=== PATIENT | female | born 1985 | race Caucasian/White ===

== ENCOUNTER 2016-09-27 06:04 | Inpatient (IN) | payer BC ==
[~2016-09-27] VITALS: Ht 167.6 cm; Wt 102.7 kg
[~2016-09-27 06:04] MED LIST: MTR600X PO; PRENTAB26 PO
[2016-09-27] MEDS ORDERED: LACTATED RINGER'S 1000ML 1,000 ML IV PRN (06:57)
[2016-09-27] MEDS ORDERED: LACTATED RINGER'S 1000ML 1,000 ML IV SCH (06:57)
[2016-09-27] MEDS ORDERED: ZNT/150 PO (06:58)
[2016-09-27] MEDS ORDERED: SERT50TA PO (06:58)
[2016-09-27 06:59] VITALS: Ht 167.6 cm; Wt 102.7 kg
[2016-09-27] MEDS ORDERED: LACTATED RINGER'S 1000ML 500 ML IV PRN ×2 (07:07→13:36)
[2016-09-27] MEDS ORDERED: OXYTOCIN 30 UNITS/500ML NSS IV PRN ×2 (07:15→18:15)
[2016-09-27 07:29] LABS: HEMATOCRIT 32.9 % (37-47); MEAN CELL VOLUME 89.4 fL (80-100); MEAN CORPUSCULAR HEMOGLOBIN 29.3 pg (25-34); MEAN CORPUSCULAR HGB CONC 32.8 g/dl (32-36); MEAN PLATELET VOLUME 9.7 fL (7.4-10.4); PLATELET COUNT 293 K/uL (130-400); RED BLOOD COUNT 3.68 M/uL (4.2-5.4); WHITE BLOOD COUNT 8.92 K/uL (4.8-10.8)
[2016-09-27] MEDS: RANITIDINE HCL 150 MG TAB PO SCH ×3 (07:55→23:07)
[2016-09-27] MEDS ORDERED: BUPIVACAINE 0.25% 30 ML VIAL ONE (11:27)
[2016-09-27] MEDS ORDERED: FENTANYL 2MCG/ML ROPIV 1.25MG/ML 100ML BAG EPI ONE (11:28)
[2016-09-27] MEDS ORDERED: EpHEDrine SULFATE INJ 50 MG/ML AMP ONE (11:28)
[2016-09-27] MEDS ORDERED: FENTANYL CITRATE INJ 50 MCG/1 ML 2 ML VIAL ONE (11:28)
[2016-09-27] MEDS ORDERED: NALOXONE HCL INJ 1 MG in SODIUM CHLORIDE 0.9% 1000ML 1,000 ML IV PRN (13:36)
[2016-09-27] MEDS ORDERED: FENTANYL 2MCG/ML ROPIV 1.25MG/ML 100ML BAG EPI PRN (13:45)
[2016-09-27] MEDS ORDERED: NALBUPHINE HCL INJ 10 MG/ML AMP IV PRN (13:45)
[2016-09-27] MEDS ORDERED: NALOXONE HCL INJ 0.4 MG/1 ML VIAL/CARP IV PRN (13:45)
[2016-09-27] MEDS ORDERED: DiphenhydrAMINE HCL 50 MG/ML VIAL IV PRN (13:45)
[2016-09-27] MEDS ORDERED: ONDANSETRON INJ 2 MG/ML 2 ML VIAL IV PRN (13:45)
[2016-09-27] MEDS ORDERED: EpHEDrine SULFATE INJ 50 MG/ML AMP IV PRN (13:45)
[2016-09-27] MEDS: CALCIUM CARBONATE 500 MG CHEWABLE PO PRN ×2 (14:45→17:09)
[2016-09-27] MEDS ORDERED: ACETAMINOPHEN 500 MG TAB PO ONE (15:00)
[2016-09-27] MEDS ORDERED: LANOLIN OINT EXT PRN ×2 (18:15)
[2016-09-27] MEDS ORDERED: SUPERCREAM 0.870 % 15GM JAR EXT PRN (18:15)
[2016-09-27] MEDS ORDERED: OXYCODONE/ACETAMINOPHEN 5-325 TAB PO PRN (18:15)
[2016-09-27] MEDS ORDERED: BENZOCAINE 20% AER SPR 82.5 GM CAN EXT PRN (18:15)
[2016-09-27] MEDS ORDERED: HYDROCORTISONE ACETATE 25 MG SUPP PR PRN (18:15)
[2016-09-27] MEDS ORDERED: ACETAMINOPHEN/CODEINE 300/30MG TAB PO PRN (18:15)
--- NOTE | 2016-09-27 18:51 | Progress Note ---
Progress Note Date of Service Sep 27, 2016. Progress Note Delivery Note Patient delivered a live infant male in occiput anterior presentation. There was loose nuchal cord was easily reduced. was delivered and placed on mother's abdomen. Delayed cord clamp was performed after 1 minute. score was 9/9/. Cord blood was obtained and baby's wt is pending . Placenta was spontaneously delivered . It appeared grossly normal . Three-vessel cord is identified. Inspection of the perineum showed second-degree midline laceration. Laceration is repaired with 2-0 Vicryl in layers. Rectal exam post repair shows good sphincter tone. No sutures are palpated in the rectum. all instruments was removed from the vagina and accounted for 2 including sponges and needles. baby and mother are stable and in recovery.estimated blood loss was about 400 mL.
[2016-09-27] MEDS: IBUPROFEN 600 MG TAB PO PRN ×2 (19:50→23:56)
[2016-09-27 21:15] VITALS: BP 124/81; PULSE 102; TEMP 37
[2016-09-27] MEDS: ACETAMINOPHEN 325 MG TAB PO PRN (21:15)
[2016-09-27] MEDS: DOCUSATE SODIUM 100 MG CAP PO SCH (21:33)
--- NOTE | 2016-09-27 22:18 | Anesthesia Procedure Note ---
Anesthesia Epidural Removal Nt Date & Time Sep 27, 2016 at 22:18 Vital Signs Pain Intensity: 3.0 Vital Signs Past 12 Hours Date Time Temp Pulse Resp B/P (MAP) Pulse Ox O2 Delivery O2 Flow Rate FiO2 09/27/16 21:15 37.0 102 18 124/81 (95) Room Air 09/27/16 21:15 Room Air Notes Mental Status: alert / awake / arousable, participated in evaluation Nausea / Vomiting: adequately controlled Pain: adequately controlled Airway Patency, RR, SpO2: stable & adequate BP & HR: stable & adequate Hydration State: stable & adequate Neuraxial Anesthesia: was administered Anesthetic Complications: no major complications apparent, pt satisfied with anesthetic care Epidural: removed without complications, with tip intact
[2016-09-28] VITALS (7 sets, daily range): BP systolic 109–126; BP diastolic 61–75; PULSE 74–85; TEMP 36.4–36.8; O2SAT 96–98
[2016-09-28] MEDS: ACETAMINOPHEN/CODEINE 300/30MG TAB PO PRN ×2 (02:16→16:00)
[2016-09-28] MEDS: IBUPROFEN 600 MG TAB PO PRN ×5 (04:12→23:54)
--- NOTE | 2016-09-28 07:52 | OB/GYN Progress Note ---
[employer] Progress Note Date of Service Sep 28, 2016. Subjective conversation w/ patient Ambulation: ambulating normally Voiding: no voiding problems Passing Gas: Yes Diet Tolerance: Regular Diet Lochia: Moderate Review of Systems Constitutional: No fever, No chills, No sweats, No weight loss, No weakness, No fatigue, No problem reported Respiratory: No cough, No sputum, No wheezing, No shortness of breath, No dyspnea on exertion, No dyspnea at rest, No hemoptysis, No problem reported Cardiac: No chest pain, No orthopnea, No PND, No edema, No claudication, No palpitations, No problem reported Breast: No see HPI, No breast lump, No change in shape, No nipple discharge, No breast pain, No problem reported Abdomen: No pain, No nausea, No vomiting, No diarrhea, No constipation, No GI bleeding, No problem reported Female : No see HPI, No dysuria, No urinary frequency, No hematuria, No incontinence, No abnormal vaginal bleeding, No vaginal discharge, No problem reported Objective Vital Signs Date Time Temp Pulse Resp B/P (MAP) Pulse Ox O2 Delivery O2 Flow Rate FiO2 09/28/16 04:00 36.6 82 20 125/61 (82) 98 Room Air 09/28/16 01:06 96 Room Air 09/28/16 01:03 36.7 82 20 126/72 (90) 96 Room Air 09/27/16 21:15 37.0 102 18 124/81 (95) Room Air 09/27/16 21:15 Room Air Physical Exam General Appearance: WELL-APPEARING Respiratory/Chest: chest non-tender, lungs clear Cardiovascular: regular rate, rhythm Abdomen: normal bowel sounds Fundus: Firm Extremities: normal range of motion Laboratory Results Last 24 Hours Test 09/28/16 07:47 Assessment and Plan Post- Day Number: 1 Continue Routine Care: VD day #1 Pt doing well anticipate disch tomorrow
[2016-09-28 08:12] LABS: HEMATOCRIT 31.2 % (37-47)
[2016-09-28] MEDS: RANITIDINE HCL 150 MG TAB PO SCH ×2 (08:24→19:28)
[2016-09-28] MEDS: DOCUSATE SODIUM 100 MG CAP PO SCH ×2 (08:24→19:28)
[2016-09-28] MEDS: SERTRALINE HCL 100 MG TAB PO SCH (09:01)
[2016-09-28] MEDS ORDERED: BISACODYL 5 MG TABEC PO SCH (20:00)
[2016-09-29] MEDS: ACETAMINOPHEN 325 MG TAB PO PRN (02:57)
[2016-09-29] MEDS ORDERED: BISACODYL 10 MG SUPP PR PRN (07:00)
[2016-09-29] MEDS: IBUPROFEN 600 MG TAB PO PRN ×2 (07:17→13:11)
[2016-09-29] MEDS: DOCUSATE SODIUM 100 MG CAP PO SCH (08:15)
[2016-09-29] MEDS: RANITIDINE HCL 150 MG TAB PO SCH (08:15)
[2016-09-29] MEDS: SERTRALINE HCL 100 MG TAB PO SCH (08:15)
[2016-09-29 08:33] VITALS: BP 122/83; PULSE 84; TEMP 36.6; O2SAT 98
[2016-09-29] MEDS ORDERED: MEASLES, MUMPS & RUBELLA VIRUS VIAL SQ. ONE (09:00)
[2016-09-29] MEDS ORDERED: MTR600X PO (09:01)
--- NOTE | 2016-09-29 09:01 | OB/GYN Progress Note ---
[employer] Progress Note Date of Service Sep 29, 2016. Subjective conversation w/ patient, physical exam Ambulation: ambulating normally Voiding: no voiding problems Passing Gas: Yes Diet Tolerance: Regular Diet Lochia: Small Feeding Type: Breast Feeding Pain: 2/10 Notes: Doing well, no concerns. Pain well controlled. Lochia decreasing. Ambulating without difficulty. Tolerating regular diet. Objective Vital Signs Date Time Temp Pulse Resp B/P (MAP) Pulse Ox O2 Delivery O2 Flow Rate FiO2 09/29/16 08:33 98 Room Air 09/29/16 08:33 36.6 84 16 122/83 (96) 98 Room Air 09/28/16 23:45 96 Room Air 09/28/16 23:45 36.6 79 16 119/75 (90) 96 Room Air 09/28/16 15:50 Room Air 09/28/16 15:50 36.8 74 18 109/75 (86) Room Air 09/28/16 11:45 36.4 85 20 110/75 (87) Room Air Physical Exam General Appearance: WELL-APPEARING Respiratory/Chest: chest non-tender, lungs clear Cardiovascular: regular rate, rhythm Abdomen: normal bowel sounds, soft Fundus: Firm Extremities: normal range of motion, non-tender, no calf tenderness Laboratory Results Last 24 Hours Test 09/29/16 08:53 Assessment and Plan Post- Day Number: 2 Continue Routine Care: -D/C home today -F/U in 6 weeks.
[2016-09-29 09:02] LABS: HEMATOCRIT 35.4 % (37-47); MEAN CELL VOLUME 89.8 fL (80-100); MEAN CORPUSCULAR HEMOGLOBIN 29.9 pg (25-34); MEAN CORPUSCULAR HGB CONC 33.3 g/dl (32-36); MEAN PLATELET VOLUME 9.5 fL (7.4-10.4); PLATELET COUNT 261 K/uL (130-400); RED BLOOD COUNT 3.94 M/uL (4.2-5.4); WHITE BLOOD COUNT 11.89 K/uL (4.8-10.8)
--- NOTE | 2016-09-29 09:03 | Discharge Instructions ---
Discharge Instructions Date of Service Sep 29, 2016. Admission Reason for Admission: Amniotic Fluid Leaking, Term Discharge Discharge Diagnosis / Problem: Vaginal Delivery Discharge Goals Goal(s): Routine recovery after delivery Medications Continue Dispensed Medications: supercream, dermaplast, tucks, lansinoh Activity Recommendations Activity Limitations: per Instructions/Follow-up section . Instructions / Follow-Up Instructions / Follow-Up ACTIVITY RECOMMENDATIONS: * Gradual return to full activity over the next 2-3 weeks. * No lifting - nothing heavier than baby over the next 2-3 weeks. * Do not engage in vigorous exercise, sexual activity or sports until cleared by your physician. * Do not drive or operate any motorized equipment until cleared by your physician. * You may shower/bathe daily. BREAST CARE: If you are not breast feeding: * Wear a supportive bra 24 hours a day for one to two weeks. * Avoid stimulating your breasts and nipples as much as possible during the first few weeks after delivery. * When taking a shower, have the warm water hit your back, not breasts. * When your breasts feel full, apply ice packs. Usually three to four times a day helps ease the discomfort. * Take a mild pain medication (Tylenol/Motrin) when you are uncomfortable. If breast feeding: * Use breast milk to lubricate nipples. Lansinoh cream may be used for sore nipples. You do not need to remove cream prior to breast feeding. If using a different brand of cream, check the label for directions regarding removal of cream prior to nursing. * Wear a supportive bra. * If having problems with breasts or breast feeding, call a dietitian consultant or your health care provider. EPISIOTOMY CARE: After delivery, if you have an episiotomy (stitches), the following steps will ease discomfort and aid healing. * For the first 24 hours after delivery, place ice packs next to your episiotomy to help reduce swelling. * After the first 24 hour-period, sitz baths, either portable or in the tub, are suggested. A shower with a shower arm sprayed over the episiotomy may be comforting. * Sridevi care should be done after each voiding and bowel movement. Squirt warm water from a plastic bottle over the perineum (region of the body between the anus and urinary opening) and pat dry. * Use Dermoplast to ease discomfort. Shake container. [place] directly over the episiotomy. * Place a Tucks on a clean sanitary pad next to your episiotomy. OVER THE COUNTER MEDICATION: * For discomfort or pain, you may use Acetaminophen (Tylenol), Ibuprofen (Advil ), or Naproxen (Aleve) following the package directions. * For constipation you may use Colace following the package directions. SPECIAL CARE INSTRUCTIONS: When you are discharged from the hospital, it is important for you to follow the instructions listed below: * During the first week at home, you should be able to care for yourself and your baby. In addition, the usual light household activities are encouraged. * Limit your activities to the way you feel. Do not try to clean the house or move furniture. Be sensible. * If you actively engage in sports and have done so up until the time of your delivery, you may resume these activities as soon as you feel able. This may take up to one month or even longer. Use good judgment. * Continue to take your vitamins for at least six weeks after the of your baby. * Your diet need not be limited unless you were on a special diet before your delivery. Breast-feeding mothers need around 2500 calories per day and at least 64-80 ounces of fluid per day (8 to 10 glasses). * You should eat foods from the four major food groups. Crash diets or fad diets are to be avoided. Eating lean meats, fresh fruits and vegetables, low-fat dairy products, high fiber foods and a regular exercise program, will help you get back to your pre- weight without putting your health at risk. * Constipation is sometimes a problem after delivery. Take a mild laxative as needed. If breast feeding, Milk of Magnesia is acceptable to use. You may use a suppository or Fleets enema if no episiotomy. * A daily shower or tub bath is suggested. Be sure to thoroughly and gently dry the perineum. * A bloody vaginal discharge will usually continue until around four weeks post . A small amount of bleeding may continue for as long as six weeks. Vaginal discharge changes from the bright red bleeding after delivery to pink then brownish and finally yellowish-pink before becoming white and disappearing. * Bleeding may increase with activity. Your first period may come in 4-8 weeks. If you are breast feeding, your period may be delayed even longer. * Sanderson (sex) can begin whenever both you and your partner feel comfortable and do not have any form of genital infection. It is recommended that you wait until after your return appointment and discuss with your physician. If you have questions, please talk to your health care practitioner. A condom should be used to prevent infection and . * Foreplay, gentle intercourse and lubrication is very important the first several times to prevent pain. A water-based lubricant such as K-Y jelly or Astroglide may be used. * Tampons may be used six weeks after delivery. * Douching should be avoided for 6 weeks after delivery. * If you have RH negative blood and your baby is RH positive, you will receive RHOGAM by injection prior to discharge. The nurse will give you a card to keep with you that has the date and place that you received RHOGAM after delivery. * During your care, you had a Rubella screen done to check for the presence of rubella antibodies in your blood. If your test was negative, you will receive a Rubella vaccine prior to discharge. This vaccine may cause a fever, soreness at the injection site and flu-like symptoms. If these symptoms persist, notify your health care practitioner. is not advised for three months after a Rubella vaccine. There is a higher chance of having a baby with defects if conceived within three months of getting the vaccine. * If you were discharged 24 hours from delivery or before 48 hours: Visiting nurses will come to your home 48 hours after discharge to assess you and your baby. The visiting nurse will meet with you while you are in the hospital to arrange a time and get directions to your home. * Verbalizes understanding of car seat law as reviewed with patient nursing. * Car Seat hand-out given and reviewed with patient by nursing. * Shaken baby information reviewed with patient by nursing. Call you doctor if: * Heavy bleeding (saturating several pads an hour) or passing clots the size of your fist. * A fever >101 degrees F (38.3 degrees C) on two occasions four hours apart and/or chills. * Unusual pain in the pelvic or vaginal areas. * "Baby Blues" lasting longer than two weeks. If you have any questions or concerns, call your health care practitioner at . FOLLOW-UP VISIT: * Please call the office at to schedule a 6 week examination. It is important you keep this appointment. * It is important for you to make arrangements for either yearly or twice yearly check-ups thereafter. Current Hospital Diet Patient's current hospital diet: Regular OB Diet Discharge Diet Recommended Diet: Regular OB Diet Pending Studies Studies pending at discharge: no Medical Emergencies . Who to Call and When: Medical Emergencies: If at any time you feel your situation is an emergency, please call 911 immediately. . Non-Emergent Contact Non-Emergency issues call your: Primary Care Provider, Nurses' Aide . . "Provider Documentation" section prepared by Ahsan Mccormick. . VTE Core Measure Inpt VTE Proph given/why not?: Treatment not indicated
[2016-09-29 13:30] VITALS: BP_DIAS 83; PULSE 84; TEMP 36.6
== END 2016-09-29 13:45 | disposition home or self-care (01) | DRG 775 ==
LOC: C.OPB 06:04 → C.LD 06:05 → C.OPB 07:07 → C.LD 09:45 → C.OBG 20:24
PROVIDERS: ADMIT Obstetrics & Gynecology; ATTEND Obstetrics & Gynecology
PROC: 10E0XZZ Delivery of Products of Conception, External Approach (ICD-10-PCS; principal; 2016-09-27)
PROC: 0KQM0ZZ Repair Perineum Muscle, Open Approach (ICD-10-PCS; principal; 2016-09-27)
DX: O69.81X0 Labor and delivery complicated by cord around neck, without compression, not applicable or unspecified (principal); O70.1 Second degree perineal laceration during delivery; Z3A.40 40 weeks gestation of pregnancy; Z37.0 Single live birth

== ENCOUNTER 2017-02-25 08:06 | Emergency (ER) | payer BC ==
[~2017-02-25] VITALS: Ht 165.1 cm; Wt 90.3 kg
[~2017-02-25 08:06] MED LIST changes: +SERT50TA PO; +ZNT/150 PO
[2017-02-25 08:08] VITALS: Ht 165.1 cm; Wt 90.3 kg
[2017-02-25] MEDS ORDERED: MoRPHine SULFATE 4 MG/ML 1 ML CARP\\VIAL IV STA (08:20)
[2017-02-25] MEDS ORDERED: KETOROLAC TROMETHAMINE 30 MG/ML VIAL IV STA (08:20)
[2017-02-25] MEDS ORDERED: GI COCKTAIL PO STA (08:20)
[2017-02-25] MEDS ORDERED: ONDANSETRON INJ 2 MG/ML 2 ML VIAL IV STA (08:20)
--- NOTE | 2017-02-25 08:28 | EMERGENCY ROOM VISIT NOTE ---
History Report prepared by Kendraibradha: Sierra Manjarrez Under the Supervision of: Dr. Zach Salter M.D. First contact with patient: 08:10 Chief Complaint: CHEST PAIN Stated Complaint: CHEST PAIN Nursing Triage Summary: patient states she had nausea and vomiting throughout the night. patient woke up around 0630 c/o midsternal chest pain that radiates to midback. History of Present Illness The patient is a 31 year old white female with no significant past medical history who presents to the ED with a cc of worsening chest pain beginning around three hours prior to arrival. Positive nausea, vomiting, abdominal pain. Negative fever, cough chills. She currently rates her discomfort as an 8/10 in severity. The patient reports increased pain with deep breathing. She denies taking anything for her pain. The patient denies any recent antibiotic use or sick contacts. She denies any recent travel or drinking from streams or wells. The patient describes her pain as a dull-achy pain. She denies any history of PEs or DVTs. The patient denies any recent fall or trauma. Source of History: patient Onset: three hours prior to arrival Position: chest Symptom Intensity: 8/10 Quality: ache, dull Timing: other (8/10) Modifying Factors (Worsening): breathing (deep) Associated Symptoms: + nausea, + vomiting, + abdominal pain, No fevers, No chills, No cough Review of Systems See HPI for pertinent positives and negatives. A total of ten systems were reviewed and were otherwise negative. Past Medical & Surgical Medical Problems: (1) Amniotic fluid leaking (2) possible ruptured membranes (3) term (4) Uterine contractions at greater than 20 weeks of gestation Family History No pertinent family history stated. Social History Smoking Status: Never Smoker Marital Status: Housing Status: lives with family Occupation Status: employed Current/Historical Medications Scheduled Norelgestromin-Ethinyl Estradi (Xulane 150-35 Mcg/24Hr), 1 PATCH TOP MONTHLY Allergies Coded Allergies: Sulfa Drugs (Unverified Allergy, Unknown, HIVES, 09/27/16) Physical Exam Vital Signs Date Time Temp Pulse Resp B/P (MAP) Pulse Ox O2 Delivery O2 Flow Rate FiO2 02/25/17 10:55 36.8 56 19 144/91 98 Room Air 02/25/17 09:41 72 19 121/82 94 Room Air 02/25/17 09:16 75 18 121/87 97 Room Air 02/25/17 08:48 88 20 132/92 97 Room Air 02/25/17 08:47 98 Room Air 02/25/17 08:20 104 02/25/17 08:18 95 Room Air 02/25/17 08:08 36.8 96 18 138/91 99 Room Air Physical Exam GENERAL: Awake, alert, tearful, uncomfortable-appearing, HENT: Normocephalic, atraumatic. EYES: Normal conjunctiva. Sclera non-icteric. NECK: Supple. No nuchal rigidity. FROM. RESPIRATORY: CTAB, no rhonchi, wheezing, crackles CARDIAC: RRR, no MRG ABDOMEN: Soft, mild epigastric pain, BS+ MSK: Reproducible mid-sternal tenderness to palpation without crepitus or ecchymosis, no LE edema NEURO: GCS 15, CN 2-12 intact, moves all 4s on command SKIN: No rash or jaundice noted. Medical Decision & Procedures ER Provider Diagnostic Interpretation: X-ray: Per my interpretation, radiologist review. CHEST ONE VIEW PORTABLE CLINICAL HISTORY: Chest pain. COMPARISON STUDY: No previous studies for comparison. FINDINGS: Lung volumes are normal. No pneumothorax or pleural effusion is present. There is no consolidation. Pulmonary vascularity is normal. Cardiomediastinal silhouette is normal. IMPRESSION: No acute cardiopulmonary findings. Electronically signed by: Ethan Palmer M.D. 02/25/2017 8:34 AM Dictated Date/Time: 02/25/2017 8:33 AM Laboratory Results 02/25/17 08:32 Red Blood Count 4.69, Mean Corpuscular Volume 89.6, Mean Corpuscular Hemoglobin 30.7, Mean Corpuscular Hemoglobin Concent 34.3, Mean Platelet Volume 10.9, Neutrophils (%) (Auto) 72.3, Lymphocytes (%) (Auto) 16.9, Monocytes (%) (Auto) 6.3, Eosinophils (%) (Auto) 4.1, Basophils (%) (Auto) 0.3, Neutrophils # (Auto) 4.91, Lymphocytes # (Auto) 1.15, Monocytes # (Auto) 0.43, Eosinophils # (Auto) 0.28, Basophils # (Auto) 0.02 02/25/17 08:32 Test 02/25/17 08:32 White Blood Count 6.80 K/uL (4.8-10.8) Red Blood Count 4.69 M/uL (4.2-5.4) Hemoglobin 14.4 g/dL (12.0-16.0) Hematocrit 42.0 % (37-47) Mean Corpuscular Volume 89.6 fL (80-100) Mean Corpuscular Hemoglobin 30.7 pg (25-34) Mean Corpuscular Hemoglobin Concent 34.3 g/dl (32-36) Platelet Count 256 K/uL (130-400) Mean Platelet Volume 10.9 fL (7.4-10.4) Neutrophils (%) (Auto) 72.3 % Lymphocytes (%) (Auto) 16.9 % Monocytes (%) (Auto) 6.3 % Eosinophils (%) (Auto) 4.1 % Basophils (%) (Auto) 0.3 % Neutrophils # (Auto) 4.91 K/uL (1.4-6.5) Lymphocytes # (Auto) 1.15 K/uL (1.2-3.4) Monocytes # (Auto) 0.43 K/uL (0.11-0.59) Eosinophils # (Auto) 0.28 K/uL (0-0.5) Basophils # (Auto) 0.02 K/uL (0-0.2) RDW Standard Deviation 42.6 fL (36.4-46.3) RDW Coefficient of Variation 13.2 % (11.5-14.5) Immature Granulocyte % (Auto) 0.1 % Immature Granulocyte # (Auto) 0.01 K/uL (0.00-0.02) Prothrombin Time 9.8 SECONDS (9.0-12.0) Prothromb Time International Ratio 0.9 (0.9-1.1) Activated Partial Thromboplast Time 27.1 SECONDS (21.0-31.0) Partial Thromboplastin Ratio 1.0 Anion Gap 7.0 mmol/L (3-11) Est Creatinine Clear Calc Drug Dose 133.5 ml/min Estimated GFR () 136.3 Estimated GFR (Non- 117.6 BUN/Creatinine Ratio 15.6 (10-20) Calcium Level 9.0 mg/dl (8.5-10.1) Total Bilirubin 0.8 mg/dl (0.2-1) Direct Bilirubin 0.1 mg/dl (0-0.2) Aspartate Amino Transf (AST/SGOT) 17 U/L (15-37) Alanine Aminotransferase (ALT/SGPT) 20 U/L (12-78) Alkaline Phosphatase 66 U/L (45-117) Troponin I < 0.015 ng/ml (0-0.045) Total Protein 7.3 gm/dl (6.4-8.2) Albumin 4.0 gm/dl (3.4-5.0) Lipase 155 U/L (73-393) Laboratory results reviewed by me Medications Administered Medications (Trade) Dose Ordered Sig/Karri Route Start Time Stop Time Status Last Admin Dose Admin Ketorolac Tromethamine (Toradol Inj) 30 mg NOW STAT IV 02/25/17 08:20 02/25/17 08:23 DC 02/25/17 08:44 30 MG Miscellaneous Medication (Gi Cocktail) 24 ml ONE STAT PO 02/25/17 08:20 02/25/17 08:23 DC 02/25/17 08:20 24 ML Ondansetron HCl (Zofran Inj) 4 mg NOW STAT IV 02/25/17 08:20 02/25/17 08:23 DC 02/25/17 08:44 4 MG Morphine Sulfate (MoRPHine SULFATE INJ) 4 mg NOW STAT IV 02/25/17 08:20 02/25/17 08:23 DC 02/25/17 08:45 4 MG Al Hydroxide/Mg Hydroxide (Maalox Susp) 30 ml STK-MED ONCE .ROUTE 02/25/17 08:37 02/25/17 08:38 DC 02/25/17 08:43 30 ML Lidocaine HCl (Viscous Lidocaine 2% Soln) 20 ml STK-MED ONCE .ROUTE 02/25/17 08:37 02/25/17 08:38 DC 02/25/17 08:43 10 ML Hydromorphone HCl (Dilaudid Inj) 0.5 mg NOW STAT IV 02/25/17 09:21 02/25/17 09:31 DC 02/25/17 09:21 0.5 MG Famotidine (Pepcid Tab) 20 mg NOW ONCE PO 02/25/17 10:00 02/25/17 10:01 DC 02/25/17 10:11 20 MG ECG Indication: chest pain Rate (beats per minute): 98 Rhythm: normal sinus Findings: other (normal axis, normal intervals, no other STS or TWI) ED Course 0816: The patient was evaluated in room B9. A complete history and physical exam was performed. 1028: I reevaluated the patient and she is resting comfortably. I discussed the test results with her and I discussed the treatment plan. She verbalized complete understanding and agreement. She is ready to go home. Medical Decision Differential diagnosis: Etiologies such as cardiac ischemia, aortic dissection, pulmonary embolism, pneumonia, pneumothorax, musculoskeletal, infections, pericarditis, myocarditis , esophageal rupture, gastrointestinal, as well as others were entertained. The patient is a 31 year old white female with no significant past medical history who presents to the ED with a cc of worsening chest pain beginning around three hours prior to arrival. Patient was seen and evaluated at the bedside. Patient was complaining of some chest pain that began around 6:30 this morning. Patient did state that this occurred after waking up and it did not wake her up. Patient denies any prior lung or heart problems. Patient did have a 5 months prior. Patient denies any recent prolonged car or plane travel. Patient does use OCPs. Patient denies any smoking. Patient denies any prior history of DVT or PE. Patient denies any family history of coagulopathy. Patient does complain of some midsternal nonradiating told like chest pain. She does state it severe. Patient did have blood work completed along with an EKG, troponin, chest x-ray. Patient's chest x-ray is clear. EKG does not show any evidence of right- sided heart strain and is normal sinus although just under 100 bpm. Patient would be PE RC of 1 but a Wells of 0. I did discuss that the patient would need to be mindful of the acute onset of shortness of breath lower extremity swelling or hemoptysis. Patient stated that she was low risk for possible PE. Patient has a negative troponin with a nonischemic EKG. Although she has not a full 4 hours out given her nonischemic EKG and a 31-year-old with no other risk factors this is less likely to be ACS. Patient was feeling improved after pain medication. Patient did receive a GI cocktail and some Pepcid. Patient was feeling improved. Patient was informed of all findings. Patient was deemed suitable for a patient follow up treatment. Patient was given strict follow-up, discharge, and return precautions. All questions were answered. Patient was deemed suitable for outpatient follow-up at this time. Patient agreed with the plan of care and was safely discharged home. Medication Reconcilliation Current Medication List: was personally reviewed by me Impression Primary Impression: Chest wall pain Scribe Attestation The scribe's documentation has been prepared under my direction and personally reviewed by me in its entirety. I confirm that the note above accurately reflects all work, treatment, procedures, and medical decision making performed by me. Departure Information Dispostion Home / Self-Care Referrals No Doctor, Assigned (PCP) Forms HOME CARE DOCUMENTATION FORM, IMPORTANT VISIT INFORMATION Patient Instructions Chest Pain - [facility], [facility] Additional Instructions Please return to the emergency department if you have worsening or recurrent symptoms not amenable to at-home treatment. Please call for a follow-up appointment with her primary care physician. Please take your medications as prescribed. If you have other concerns and/or complaints please feel free to also call your primary care physician's office or return the ED for further evaluation, management, and treatment. You were found to have an elevated blood pressure today (>120 sytolic or >90 diastolic). Per medicare guidelines, you need to follow up with this blood pressure screening with your Primary Care Physician (PCP). For a new PCP call [phone]. You received narcotic or benzodiazepene medication while in the emergency room today. This is an addictive medication that may cause drowziness as well as constipation. Do not drive, operate heavy machinery, or drink alcohol under the influence of this medication. You may take 600 mg Ibuprofen every 6 hours as needed for pain with food for no more than 2 consecutive days. You may take tylenol 1000 mg every 6 hours as needed for pain. You may take motrin and tylenol separately or at the same time. Take your medications as prescribed. You have been examined and treated today on an emergency basis only. This is not a substitute for, or an effort to provide, complete comprehensive medical care. It is impossible to recognize and treat all injuries or illnesses in a single emergency department visit. It is therefore important that you follow up closely with [facility], your PCP, and/or your specialist(s). Call as soon as possible for an appointment. Thank you for your time and consideration. I look forward to speaking with you again soon. Please don't hesitate to call us if you have any questions.
--- NOTE | 2017-02-25 08:35 | DIAGNOSTIC IMAGING REPORT ---
CHEST ONE VIEW PORTABLE CLINICAL HISTORY: Chest pain. COMPARISON STUDY: No previous studies for comparison. FINDINGS: Lung volumes are normal. No pneumothorax or pleural effusion is present. There is no consolidation. Pulmonary vascularity is normal. Cardiomediastinal silhouette is normal. IMPRESSION: No acute cardiopulmonary findings. Electronically signed by: Ethan Palmer M.D. 02/25/2017 8:34 AM Dictated Date/Time: 02/25/2017 8:33 AM
[2017-02-25] MEDS ORDERED: ALUMINUM/MAGNESIUM SUSP 30 ML UDC ONE (08:37)
[2017-02-25] MEDS ORDERED: LIDOCAINE HCL 2% VISC SOLN 20 ML UDC ONE (08:37)
[2017-02-25 08:47] VITALS: O2SAT 98
[2017-02-25 08:50] LABS: BASO % 0.3 %; BASO ABS # 0.02 K/uL (0-0.2); COMPLETE YES; EOS % 4.1 %; IG% 0.1 %; LYMPH % 16.9 %; LYMPH ABS # 1.15 K/uL (1.2-3.4); MEAN CELL VOLUME 89.6 fL (80-100); MEAN CORPUSCULAR HEMOGLOBIN 30.7 pg (25-34); MEAN CORPUSCULAR HGB CONC 34.3 g/dl (32-36); MEAN PLATELET VOLUME 10.9 fL (7.4-10.4); MONO % 6.3 %; NEUT % 72.3 %; PLATELET COUNT 256 K/uL (130-400); RED BLOOD COUNT 4.69 M/uL (4.2-5.4)
[2017-02-25] MEDS ORDERED: NORE1DIS7 TOP (08:51)
[2017-02-25 09:03] LABS: INR 0.9 (0.9-1.1); PROTHROMBIN TIME (PATIENT) 9.8 SECONDS (9.0-12.0)
[2017-02-25 09:11] LABS: ALT/SGPT 20 U/L (12-78); BLOOD UREA NITROGEN 11 mg/dl (7-18); BUN/CREATININE RATIO 15.6 (10-20); CARBON DIOXIDE 24 mmol/L (21-32); CHLORIDE 107 mmol/L (98-107); CREATININE 0.69 mg/dl (0.60-1.20); GLUCOSE 96 mg/dl (70-99); SODIUM 138 mmol/L (136-145)
[2017-02-25 09:16] LABS: ALKALINE PHOSPHATASE 66 U/L (45-117); AST/SGOT 17 U/L (15-37)
[2017-02-25] MEDS ORDERED: HYDROmorphone INJ 0.5 MG/0.5 ML SYR IV STA (09:21)
[2017-02-25] MEDS ORDERED: FAMOTIDINE 20 MG TAB PO ONE (10:00)
[2017-02-25 10:55] VITALS: BP 144/91; PULSE 56; TEMP 36.8; O2SAT 98
== END 2017-02-25 11:03 | disposition home or self-care (01) ==
LOC: C.EDB 08:08
DX: R07.89 Other chest pain (principal); R11.2 Nausea with vomiting, unspecified

== ENCOUNTER 2017-03-14 13:23 | Emergency (ER) | payer BC ==
[~2017-03-14] VITALS: Ht 167.6 cm; Wt 92.3 kg
[~2017-03-14 13:23] MED LIST changes: -MTR600X PO; +NORE1DIS7 TOP; -PRENTAB26 PO; -SERT50TA PO; -ZNT/150 PO
[2017-03-14 13:25] VITALS: TEMP 36.8; Ht 167.6 cm; Wt 92.3 kg
[2017-03-14] MEDS ORDERED: MoRPHine SULFATE 4 MG/ML 1 ML CARP\\VIAL ONE (13:34)
[2017-03-14] MEDS ORDERED: MoRPHine SULFATE 4 MG/ML 1 ML CARP\\VIAL IV STA ×3 (13:36→15:04)
[2017-03-14] MEDS ORDERED: SODIUM CHLORIDE 0.9% 1000ML 1,000 ML IV STA (13:36)
--- NOTE | 2017-03-14 13:46 | EMERGENCY ROOM VISIT NOTE ---
History First contact with patient: 13:30 Chief Complaint: FALL Stated Complaint: FALL/BACK PAIN History of Present Illness The patient is a 31 year old female who presents to the Emergency Room via EMS with complaints of fall approximately 45 minutes ago. She was going down stairs carrying laundry basket, slipped and fell onto her upper back. She complains of midline pain in her upper back between her shoulder blades, as well as left elbow pain. She did not hit her head or have any LOC, denies neck pain, low back pain, abdominal pain, nausea or vomiting, hematuria, numbness/ tingling or weakness of the extremities, bowel or bladder dysfunction. She did not take any medications prior to arrival. She did not receive any medications or interventions from EMS. She reports her tetanus is up to date. She denies any previous back injuries or surgeries. Review of Systems A complete 10 point review of systems was reviewed with the patient with pertinent positives and negatives as per history of present illness. All else were negative. Past Medical/Surgical History Medical Problems: (1) Amniotic fluid leaking (2) possible ruptured membranes (3) term (4) Uterine contractions at greater than 20 weeks of gestation Social History Smoking Status: Never Smoker Marital Status: Housing Status: lives with family Occupation Status: employed Current/Historical Medications Scheduled Norelgestromin-Ethinyl Estradi (Xulane 150-35 Mcg/24Hr), 1 PATCH TOP MONTHLY Scheduled PRN Hydrocodone/Acetaminophen 5MG/325MG (Oscar 5MG/325MG), 1-2 TABLET PO Q6H PRN for Severe Pain Ketorolac Tromethamine (Toradol), 1 TAB PO Q6H PRN for Pain Physical Exam Vital Signs Date Time Temp Pulse Resp B/P (MAP) Pulse Ox O2 Delivery O2 Flow Rate FiO2 03/14/17 17:15 104 20 134/74 99 03/14/17 16:30 68 18 112/73 99 Room Air 03/14/17 15:04 78 22 137/80 98 Room Air 03/14/17 14:15 100 Room Air 03/14/17 14:15 65 16 126/74 100 Room Air 03/14/17 14:15 100 Room Air 03/14/17 13:49 110 03/14/17 13:25 36.8 98 22 139/95 100 Room Air Physical Exam CONSTITUTIONAL: Alert and oriented, cooperative, anxious and tearful, appears to be in pain. HEENT: Normocephalic, atraumatic. Pupils equal, round and reactive to light, EOMI. TMs normal. Pharynx normal. Moist because membranes. NECK: Supple, full active range of motion without discomfort. No midline tenderness of the cervical spine. RESPIRATORY: Tachypneic. Clear to auscultation bilaterally with no wheezing, crackles, rhonchi or stridor. Equal chest rise and expansion bilaterally. CARDIOVASCULAR: Regular rate and rhythm with no murmurs, rubs or gallops. Normal peripheral perfusion. No edema. GASTROINTESTINAL: Soft, nontender, nondistended. No palpable masses or HSM. Bowel sounds present in all quadrants. BACK: There is midline tenderness of the thoracic spine from T4 to T7, no step- offs or crepitus, no ecchymosis, abrasions, or swelling. MUSCULOSKELETAL: There is tenderness to palpation over the posterior left elbow , with mild swelling and a small abrasion noted. Increased pain with flexion and pronation of the elbow. No tenderness with range of motion of the left shoulder or wrist. Full range of motion of all other joints without discomfort. INTEGUMENTARY: No rash or other significant dermatologic conditions noted. NEUROLOGIC: Alert and oriented X 4 with normal affect. Cranial nerves II-XII grossly intact. No focal neurologic deficits noted. 5/5 strength in all 4 extremities, sensation intact to light touch in all 4 extremities. Normal speech. Medical Decision & Procedures ER Provider Diagnostic Interpretation: THORACIC SPINE 3 VIEWS ROUTINE CLINICAL HISTORY: Thoracic spine pain status post trauma COMPARISON STUDY: No previous studies for comparison. FINDINGS: The paraspinal line is not displaced. There is a mild age-indeterminate superior endplate T4 compression fracture. IMPRESSION: Mild age-indeterminate superior endplate T4 compression fracture ----- L ELBOW MIN 3 VIEWS ROUTINE CLINICAL HISTORY: Left elbow pain status post trauma COMPARISON: None. DISCUSSION: The fat pads are not displaced. No fractures or dislocations are visualized. IMPRESSION: No fractures or dislocations identified. ----- [] Laboratory Results 03/14/17 13:55 Red Blood Count 4.57, Mean Corpuscular Volume 89.5, Mean Corpuscular Hemoglobin 30.6, Mean Corpuscular Hemoglobin Concent 34.2, Mean Platelet Volume 10.4, Neutrophils (%) (Auto) 63.1, Lymphocytes (%) (Auto) 27.0, Monocytes (%) (Auto) 6.0, Eosinophils (%) (Auto) 2.8, Basophils (%) (Auto) 0.3, Neutrophils # (Auto) 4.55, Lymphocytes # (Auto) 1.95, Monocytes # (Auto) 0.43, Eosinophils # (Auto) 0.20, Basophils # (Auto) 0.02 03/14/17 13:55 Test 03/14/17 13:55 03/14/17 14:03 03/14/17 14:15 White Blood Count 7.21 K/uL (4.8-10.8) Red Blood Count 4.57 M/uL (4.2-5.4) Hemoglobin 14.0 g/dL (12.0-16.0) Hematocrit 40.9 % (37-47) Mean Corpuscular Volume 89.5 fL (80-100) Mean Corpuscular Hemoglobin 30.6 pg (25-34) Mean Corpuscular Hemoglobin Concent 34.2 g/dl (32-36) Platelet Count 261 K/uL (130-400) Mean Platelet Volume 10.4 fL (7.4-10.4) Neutrophils (%) (Auto) 63.1 % Lymphocytes (%) (Auto) 27.0 % Monocytes (%) (Auto) 6.0 % Eosinophils (%) (Auto) 2.8 % Basophils (%) (Auto) 0.3 % Neutrophils # (Auto) 4.55 K/uL (1.4-6.5) Lymphocytes # (Auto) 1.95 K/uL (1.2-3.4) Monocytes # (Auto) 0.43 K/uL (0.11-0.59) Eosinophils # (Auto) 0.20 K/uL (0-0.5) Basophils # (Auto) 0.02 K/uL (0-0.2) RDW Standard Deviation 42.0 fL (36.4-46.3) RDW Coefficient of Variation 12.9 % (11.5-14.5) Immature Granulocyte % (Auto) 0.8 % Immature Granulocyte # (Auto) 0.06 K/uL (0.00-0.02) Prothrombin Time 10.2 SECONDS (9.0-12.0) Prothromb Time International Ratio 1.0 (0.9-1.1) Activated Partial Thromboplast Time 27.3 SECONDS (21.0-31.0) Partial Thromboplastin Ratio 1.1 Anion Gap 6.0 mmol/L (3-11) Est Creatinine Clear Calc Drug Dose 131.9 ml/min Estimated GFR () 131.2 Estimated GFR (Non- 113.2 BUN/Creatinine Ratio 12.7 (10-20) Calcium Level 8.9 mg/dl (8.5-10.1) Total Bilirubin 0.9 mg/dl (0.2-1) Direct Bilirubin 0.2 mg/dl (0-0.2) Aspartate Amino Transf (AST/SGOT) 24 U/L (15-37) Alanine Aminotransferase (ALT/SGPT) 23 U/L (12-78) Alkaline Phosphatase 88 U/L (45-117) Total Protein 7.1 gm/dl (6.4-8.2) Albumin 3.9 gm/dl (3.4-5.0) Bedside Glucose 93 mg/dl (70-90) Urine Color YELLOW Urine Appearance CLEAR (CLEAR) Urine pH 8.5 (4.5-7.5) Urine Specific Vian 1.010 (1.000-1.030) Urine Protein NEG (NEG) Urine Glucose (UA) NEG (NEG) Urine Ketones TRACE (NEG) Urine Occult Blood NEG (NEG) Urine Nitrite NEG (NEG) Urine Bilirubin NEG (NEG) Urine Urobilinogen NEG (NEG) Urine Leukocyte Esterase NEG (NEG) Urine Test NEG (NEG) Medications Administered Medications (Trade) Dose Ordered Sig/Karri Route Start Time Stop Time Status Last Admin Dose Admin Sodium Chloride 1,000 ml @ 999 mls/hr Q1H1M STAT IV 03/14/17 13:36 03/14/17 14:36 DC 03/14/17 14:00 999 MLS/HR Morphine Sulfate (MoRPHine SULFATE INJ) 4 mg NOW STAT IV 03/14/17 13:51 03/14/17 13:53 DC 03/14/17 13:56 4 MG Ondansetron HCl (Zofran Inj) 4 mg NOW STAT IV 03/14/17 13:52 03/14/17 13:54 DC 03/14/17 15:08 4 MG Morphine Sulfate (MoRPHine SULFATE INJ) 4 mg NOW STAT IV 03/14/17 15:04 03/14/17 15:05 DC 03/14/17 15:08 4 MG Ketorolac Tromethamine (Toradol Inj) 15 mg NOW STAT IV 03/14/17 16:37 03/14/17 16:38 DC 03/14/17 16:47 15 MG Medical Decision CC: Patient presenting with complaint of fall, upper back pain and left elbow pain Interpretation of Labs: No leukocytosis, no anemia, no significant joint abnormalities, normal renal function, normal liver enzymes. Coagulation factors within normal limits. UA negative for infection or hematuria. Urine negative. Differential Diagnosis: Includes, but not limited to trauma such as thoracic vertebral fracture, subluxation, contusion, rib fracture, elbow fracture, among others. Medication Reconciliation: I attest that I have personally reviewed the patient' s current medication list. Vital signs review: I reviewed the patient's vital signs and interpret them as follows: T: Afebrile; BP: Hypertensive; HR: Tachycardic; RR: Tachypneic; Pulse Ox: Within normal limits on room air. Blood pressure screening: The patient was found to have an elevated blood pressure, this was felt to be situational. Summary: Patient was evaluated at bedside, history and physical exam performed. Patient is alert and oriented, in obvious discomfort, anxious and tearful during the exam. Neurologic exam is intact with no focal deficits noted. There is midline tenderness of the midthoracic spine, there is tenderness and swelling of the left elbow. There is no tenderness of the cervical spine. Patient has full passive range of motion of the neck without pain. Orders were placed at bedside for labs, UA and urine , IV fluids for hydration, x-rays of the chest, thoracic spine, and left elbow to evaluate for traumatic injury. IV morphine ordered for pain. Patient discussed with Dr. Salter, who agrees with my assessment and plan. Labs reviewed as above, unremarkable. Imaging reveals a mild superior endplate compression fracture of T4, suspect this is acute given her injury and no previous injuries to the back. Chest x- ray and elbow x-rays are negative. Patient reassessed multiple times throughout ED stay, she reports improved pain after medications and appears much more comfortable. She is noted to ambulate in the room without difficulty. I spoke on the phone with Dr. Anaya, orthopedic-spine surgery, who does not recommend any brace or immobilization of the spine. He did recommend treating with Toradol and PRN narcotic, and will see the patient in clinic for follow-up next week. I updated the patient on all results and plan for discharge, encouraged her to keep follow-up with ortho-spine, as well as to see her PCP as needed. Patient was also given strict return precautions should her symptoms worsen, she verbalized understanding. The patient was discharged home with a family member in stable condition and ambulatory. Impression Primary Impression: Traumatic compression fracture of thoracic vertebra Departure Information Dispostion Home / Self-Care Condition GOOD Prescriptions Hydrocodone/Acetaminophen 5MG/325MG (Oscar 5MG/325MG) Tab 1-2 TABLET PO Q6H Y for Severe Pain, #15 TAB For Initial Treatment Prov: Abiola Barrientos CRNP 03/14/17 Ketorolac Tromethamine (TORADOL) 10 Mg Tab 1 TAB PO Q6H Y for Pain for 5 Days, #20 TAB Prov: Abiola Barrientos CRNP 03/14/17 Referrals No Doctor, Assigned (PCP) Dereck Anaya, DO Patient Instructions ED Fx Comp Vertebral, [facility] Additional Instructions You have been treated in the Emergency Department for a compression fracture of your T4 vertebrae (fracture in your upper spine). You have received pain medicine in the emergency department which impairs your ability to operate a vehicle. It is illegal for you to drive after receiving these medicines. You have been prescribed Toradol to be taken every 6 hours for pain. This is a nonsteroidal anti-inflammatory medication. Do not take any other NSAIDs such as Advil, ibuprofen, Aleve, aspirin while you are taking this medication. You have been prescribed Oscar to be used for severe breakthrough pain. This is a narcotic medication. You cannot drive or consume alcohol while on this medicine. This medicine should only be used for pain that cannot be controlled with [id number] pain medicines. If this is an acute injury, ice can be applied to the area of pain for the first 3 days to help decrease pain and inflammation. After the first 3 days, a heating pad can be used over the area for continued soothing relief. To minimize your discomfort, you can hug a pillow while coughing or sneezing. Additionally, you should continue to force yourself to take nice, deep breaths. Full expansion of the lungs is necessary to prevent the accumulation of fluid in the lung tissue and development of pneumonia. You should schedule a follow-up appointment in the next week with the orthopedic spine surgeon for further evaluation and treatment of your back pain. Call for an appointment. Return to the Emergency Department if your current symptoms worsen despite treatment course outlined above, or if you develop any of the following symptoms : Severe worsening pain that does not respond to pain medication, development of a wet cough, bloody cough, fever, chills, increased shortness of breath, or any other concerns. Work Instructions Return To Work: 3 days Problem Qualifiers Primary Impression: Traumatic compression fracture of thoracic vertebra Encounter type: initial encounter Thoracic vertebra fracture level: T4 Fracture type: closed Qualified Codes: S22.040A - Wedge compression fracture of fourth thoracic vertebra, initial encounter for closed fracture
[2017-03-14] MEDS ORDERED: MoRPHine SULFATE 10 MG/ML CARP/VIAL IM STA (13:49)
[2017-03-14] MEDS ORDERED: ONDANSETRON INJ 2 MG/ML 2 ML VIAL IV STA (13:52)
[2017-03-14 14:07] LABS: BASO % 0.3 %; BASO ABS # 0.02 K/uL (0-0.2); EOS % 2.8 %; HEMATOCRIT 40.9 % (37-47); IG# 0.06 K/uL (0.00-0.02); LYMPH ABS # 1.95 K/uL (1.2-3.4); MEAN CELL VOLUME 89.5 fL (80-100); MEAN CORPUSCULAR HEMOGLOBIN 30.6 pg (25-34); MEAN CORPUSCULAR HGB CONC 34.2 g/dl (32-36); MEAN PLATELET VOLUME 10.4 fL (7.4-10.4); MONO ABS # 0.43 K/uL (0.11-0.59); NEUT % 63.1 %; NEUT ABS # 4.55 K/uL (1.4-6.5); PLATELET COUNT 261 K/uL (130-400); RED CELL DISTRIBUTION WIDTH CV 12.9 % (11.5-14.5); WHITE BLOOD COUNT 7.21 K/uL (4.8-10.8)
[2017-03-14 14:15] VITALS: O2SAT 100
[2017-03-14 14:16] LABS: PTT PATIENT 27.3 SECONDS (21.0-31.0)
[2017-03-14 14:25] LABS: ALBUMIN 3.9 gm/dl (3.4-5.0); CALCIUM 8.9 mg/dl (8.5-10.1); CREATININE 0.72 mg/dl (0.60-1.20); POTASSIUM 3.8 mmol/L (3.5-5.1)
[2017-03-14 14:28] LABS: TOTAL PROTEIN 7.1 gm/dl (6.4-8.2)
--- NOTE | 2017-03-14 15:04 | DIAGNOSTIC IMAGING REPORT ---
CHEST 1 VW FRONT-NOT PORTABLE CLINICAL HISTORY: Trauma. COMPARISON STUDY: 02/25/2017 FINDINGS: The cardiac and mediastinal contours are normal. There is no evidence of focal pulmonary consolidation. There is no evidence of failure. No pleural effusions are visualized.[ No pneumothorax is visualized. IMPRESSION: No active disease in the chest. Electronically signed by: Solo Kilpatrick M.D. 03/14/2017 3:03 PM Dictated Date/Time: 03/14/2017 3:03 PM
--- NOTE | 2017-03-14 15:06 | DIAGNOSTIC IMAGING REPORT ---
L ELBOW MIN 3 VIEWS ROUTINE CLINICAL HISTORY: Left elbow pain status post trauma COMPARISON: None. DISCUSSION: The fat pads are not displaced. No fractures or dislocations are visualized. IMPRESSION: No fractures or dislocations identified. Electronically signed by: Solo Kilpatrick M.D. 03/14/2017 3:04 PM Dictated Date/Time: 03/14/2017 3:04 PM
--- NOTE | 2017-03-14 15:08 | DIAGNOSTIC IMAGING REPORT ---
THORACIC SPINE 3 VIEWS ROUTINE CLINICAL HISTORY: Thoracic spine pain status post trauma COMPARISON STUDY: No previous studies for comparison. FINDINGS: The paraspinal line is not displaced. There is a mild age-indeterminate superior endplate T4 compression fracture. IMPRESSION: Mild age-indeterminate superior endplate T4 compression fracture Electronically signed by: Solo Kilpatrick M.D. 03/14/2017 3:06 PM Dictated Date/Time: 03/14/2017 3:05 PM
[2017-03-14] MEDS ORDERED: KETOROLAC TROMETHAMINE 30 MG/ML VIAL IV STA (16:37)
[2017-03-14] MEDS ORDERED: HYDR-5688 PO (16:49)
[2017-03-14] MEDS ORDERED: KETO10TA PO (16:49)
[2017-03-14 17:15] VITALS: BP 134/74; PULSE 104; O2SAT 99
== END 2017-03-14 17:13 | disposition home or self-care (01) ==
LOC: EDBD 13:23 → C.EDC 13:26
DX: S22.040A Wedge compression fracture of fourth thoracic vertebra, initial encounter for closed fracture (principal); W01.0XXA Fall on same level from slipping, tripping and stumbling without subsequent striking against object, initial encounter